=== PATIENT | female | born 1935 ===

== ENCOUNTER 2020-10-28 10:55 | Emergency (ER) | payer MEDICARE ==
--- NOTE | 2020-10-28 12:17 | EDM.PDOC ---
ED HPI GENERAL MEDICAL PROBLEM - General Stated Complaint: RIGHT JAW SWELLING / POSSIBLE INFECTION Time Seen by Provider: 10/28/20 11:00 - History of Present Illness INITIAL COMMENTS - FREE TEXT/NARRATIVE: She comes to the ER with C/O tenderness and swelling on the right facial cheek, lower aspect. Started yesterday. No injuries. No bleeding inside her mouth. She does not feel sick. - Related Data Allergies Allergy/AdvReac Type Severity Reaction Status Date / Time No Known Allergies Allergy Verified 09/17/17 15:14 Home Meds: Home Meds traMADol HCl [Tramadol HCl] 1 tab PO ASDIRECTED 09/17/17 [History] ED ROS GENERAL - Review of Systems Review Of Systems: Comprehensive ROS is negative, except as noted in HPI. Skin: Reports: Other (tender lump on right cheek.) ED EXAM, SKIN/RASH Exam: See Below Throat/Mouth: Other (Oral exam reveals redness and mild swelling lateral to the rt premolar area, which does correlate with the external exam. No blister or pustule noted. Her dentures are not rubbing or irritating the area. ) Head: Other (mild swelling noted on right lower facial cheek. Skin is intact without redness.) Departure - Departure Time of Disposition: 11:30 Disposition: Home, Self-Care 01 Condition: Good Clinical Impression: Soft tissue disorder - Discharge Information *PRESCRIPTION DRUG MONITORING PROGRAM REVIEWED*: No *COPY OF PRESCRIPTION DRUG MONITORING REPORT IN PATIENT MUNIR: No Instructions: Skin Abscess, [id number] Referrals: PCP,None [Primary Care Provider] - Additional Instructions: Take Keflex 500mg tab twice a day until gone. Follow up with MD in clinic if symptoms do not improve. May use warm pack for comfort.
== END 2020-10-28 11:30 | disposition home or self-care (01) ==
LOC: LB.ED 10:55
DX: M79.89 Other specified soft tissue disorders (principal)
CPT/HCPCS: 99283